=== PATIENT | female | born 1985 | race Caucasian/White ===

== ENCOUNTER 2016-12-16 07:37 | Emergency (ER) | payer OTHER ==
[2016-12-16] MEDS ORDERED: IBUPROFEN 800 MG TAB PO ONE (07:43)
[2016-12-16 07:49] VITALS: RESP 18
[2016-12-16] MEDS ORDERED: methylPREDNISolone SOD SUCC 125 MG/2 ML VIAL IVP ONE (07:52)
[2016-12-16] MEDS ORDERED: RANITIDINE 50 MG/2 ML VIAL IVP ONE (07:52)
[2016-12-16] MEDS ORDERED: KETOROLAC 30 MG/1 ML SDV IVP ONE (07:53)
--- NOTE | 2016-12-16 07:57 | UCPHY ---
H & P Time Seen by Provider: 12/16/16 07:51 Patient Type: New HPI/ROS: HPI Sore throat, uvula swelling. 31-year-old female by private vehicle presents to Urgent Care with complaint of a sore throat and increasing swelling of her uvula since last night. No cough. No nasal congestion or rhinorrhea. Denies voice changes or stridor. No wheezing or difficulty breathing. ROS: Constitutional: No fever, no chills. No weakness. Eyes: No discharge. No changes in vision. ENT: As above. No nasal congestion or rhinorrhea. Respiratory: No cough. No shortness of breath. Cardiac: No chest pain, no palpitations. Gastrointestinal: No abdominal pain, no vomiting, no diarrhea. Genitourinary: No hematuria. No dysuria or increased frequency with urination. Musculoskeletal: No back pain. No neck pain. No myalgias or arthralgias. Skin: No rashes. Neurological: No headache. No focal weakness or altered sensation. Past medical history: None. Social history: Here by herself. Has children. No smoking. Physical Exam: General Appearance: Alert, no distress. This patient is responding to questions appropriately and in full sentences. This patient appears well- hydrated and well-nourished. Eyes: Pupils equal and round no pallor or injection. No lid edema, erythema or injection. ENT, Mouth: Mucous membranes are moist. Diffuse in mild pharyngeal erythema, uvular angioedema which spreads into the pharyngeal arches right side greater than left side. No exudates. No stridor on auscultation of her neck. No voice changes. Respiratory: There are no retractions, lungs are clear to auscultation with good air movement bilaterally. Cardiovascular: Regular rate and rhythm. No murmur. Neurological: Motor sensory function is grossly intact. Cranial nerves are normal. Gait is normal. Skin: Warm and dry, no rashes. Musculoskeletal: Neck is supple and nontender. No cervical, submental, submandibular lymphadenopathy. Extremities are symmetrical. All joints range without pain or impingement. Psychiatric: No agitation. No depression. Database: Rapid strep-positive. EKG: Imaging: Procedures: Emergency department course: IV placed. She was placed on a monitor. She has no history of kidney dysfunction or other contraindications to NSAIDs. She was given 125 mg of IV Solu-Medrol, 50 mg of IV ranitidine, 50 mg of IV Benadryl and 30 mg of IV Toradol. 8:00 a.m., rapid strep positive. Patient given 1.2 million units of IM penicillin G LA. 9:05 a.m., patient re-evaluated. She is feeling better. She is swallowing liquids without difficulty. Repeat auscultation of her neck. No resting stridor. No voice changes. Repeat pharyngeal exam uvular edema is present but improved. She does feel comfortable going home and I feel she is safe for discharge at this time. Plan will be to prescribe her high-dose ibuprofen, antihistamines and prednisone to be taken over the next 2-3 days. Return to Urgent Care/emergency department precautions were discussed with her in detail. All of her questions were answered. Follow-up was discussed. She was discharged in good condition. Differential Diagnosis: The differential diagnosis on this patient includes but is not limited to viral pharyngitis, streptococcal pharyngitis, uvulitis, angioedema. Anaphylaxis, anaphylactoid reaction unlikely. This represents a partial list of diagnoses considered. These considerations are based on history, physical exam, past history, reassessment and diagnostic testing. Smoking Status: Never smoked Constitutional: Initial Vital Signs Temperature (C) 36.6 C 12/16/16 07:47 Heart Rate 99 12/16/16 07:47 Respiratory Rate 18 12/16/16 07:47 Blood Pressure 131/69 H 12/16/16 07:47 O2 Sat (%) 95 12/16/16 07:47 O2 Delivery Mode Room Air Allergies/Adverse Reactions: Sulfa (Sulfonamide Antibiotics) Allergy (Verified 12/16/16 07:47) Home Medications: Medication Instructions Recorded Famotidine [Pepcid] 40 mg PO BID #10 tab 12/16/16 diphenhydrAMINE [Benadryl 50 MG 50 mg PO Q6 #7 cap 12/16/16 (*)] predniSONE [prednisone 20mg (RX)] 60 mg PO DAILY #9 tab 12/16/16 Medical Decision Making - Data Points Laboratory Results: 12/16/16 07:50 Group A Strep Screen POSITIVE H (NEGATIVE) Medications Given: Discontinued Medications Diphenhydramine HCl (Benadryl Injection) 50 mg IVP EDNOW ONE Stop: 12/16/16 07:53 Last Admin: 12/16/16 08:17 Dose: 50 mg Famotidine (Pepcid) 40 mg IVP EDNOW ONE Stop: 12/16/16 08:07 Last Admin: 12/16/16 08:17 Dose: 40 mg Ibuprofen (Motrin) 800 mg PO EDNOW ONE Stop: 12/16/16 07:44 Last Admin: 12/16/16 07:51 Dose: Not Given Ketorolac Tromethamine (Toradol) 30 mg IVP EDNOW ONE Stop: 12/16/16 07:54 Last Admin: 12/16/16 08:17 Dose: 30 mg Methylprednisolone Sodium Succinate (Solu-Medrol) 125 mg IVP EDNOW ONE Stop: 12/16/16 07:53 Last Admin: 12/16/16 08:17 Dose: 125 mg Penicillin G Benzathine (Bicillin L-A) 1,200,000 unit IM EDNOW ONE PRN Reason: Protocol Stop: 12/16/16 08:03 Last Admin: 12/16/16 08:18 Dose: 1,200,000 unit Ranitidine HCl (Zantac) 50 mg IVP EDNOW ONE Stop: 12/16/16 07:53 Last Admin: 12/16/16 08:17 Dose: Not Given Departure - Departure Disposition: Home, Routine, Self-Care Clinical Impression: Pharyngitis, Uvulitis Condition: Good Instructions: Uvulitis (ED) Additional Instructions: Read and follow provided instructions. Follow-up with your primary care physician or 1 that I have provided you a referral to, within the next 1-2 days for re-evaluation. Take medication as prescribed. Ibuprofen dosin mg every 6 hours with meals for the next 3 days only. Start taking ibuprofen this afternoon after 3:00 p.m.. Return to the emergency department for worsening throat pain, difficulty swallowing, voice changes, stridor, worsening swelling of your uvula or throat or other serious concerns. [place]errals: [place],. [Primary Care Provider] - As per Instructions Malcolm Santillan MD [Medical Doctor] - As per Instructions Candida Molina MD [Medical Doctor] - As per Instructions Prescriptions: diphenhydrAMINE [Benadryl 50 MG (*)] 50 mg PO Q6 #7 cap Famotidine [Pepcid] 40 mg PO BID #10 tab predniSONE [prednisone 20mg (RX)] 60 mg PO DAILY #9 tab - PQRS PQRS Measurement: Not applicable.
[2016-12-16] MEDS ORDERED: BICILLIN L-A 1200000 UNIT/2 ML SYRINGE IM ONE (08:02)
[2016-12-16] MEDS ORDERED: FAMOTIDINE 20 MG/2 ML SDV ONE (08:04)
[2016-12-16] MEDS ORDERED: FAMOTIDINE 20 MG/2 ML SDV IVP ONE (08:06)
[2016-12-16 09:18] VITALS: BP 122/67; PULSE 81; TEMP 98.2; O2SAT 96
== END 2016-12-16 09:22 | disposition home or self-care (01) ==
LOC: CED 07:37
DX: J02.9 Acute pharyngitis, unspecified (principal); K12.2 Cellulitis and abscess of mouth
CPT/HCPCS: 87880-PO; 96372-PO; 96374-PO; 96375-PO; 99203-PO; G0463-PO; J0561; J1200; J1885; J2780